=== PATIENT | female | born 1955 | race Caucasian/White ===

== ENCOUNTER 2020-12-15 09:48 | Emergency (ER) | payer MEDICARE, SELFPAY ==
--- NOTE | ~2020-12-15 | XR_ITS ---
EXAMINATION: LEFT HAND AND LEFT WRIST. CLINICAL INFORMATION: Hand and wrist pain. Swelling. COMPARISON: None TECHNIQUE: 3 views left hand/wrist and one view AP left wrist. FINDINGS: Left hand and left wrist: There is a small old avulsion fracture of the base of proximal segment proximal phalanx first digit/PIP joint. There is a nondisplaced fracture base of fifth metacarpal with minimal hypertrophic bony changes/callus formation with mild soft tissue swelling. There is loss of first carpometacarpal joint space with periarticular spurring likely DJD. No additional bony abnormality seen. Rest the soft tissues are unremarkable. XR/XR wrist LT 2V IMPRESSION: Nondisplaced fracture base of fifth metacarpal with hypertrophic bony changes. There is mild soft tissue swelling. There is old avulsion fracture proximal end proximal phalanx fifth digit at the PIP joint. Osteoarthritic changes first carpometacarpal joint.
--- NOTE | ~2020-12-15 | XR_ITS ---
EXAMINATION: LEFT HAND AND LEFT WRIST. CLINICAL INFORMATION: Hand and wrist pain. Swelling. COMPARISON: None TECHNIQUE: 3 views left hand/wrist and one view AP left wrist. FINDINGS: Left hand and left wrist: There is a small old avulsion fracture of the base of proximal segment proximal phalanx first digit/PIP joint. There is a nondisplaced fracture base of fifth metacarpal with minimal hypertrophic bony changes/callus formation with mild soft tissue swelling. There is loss of first carpometacarpal joint space with periarticular spurring likely DJD. No additional bony abnormality seen. Rest the soft tissues are unremarkable. XR/XR hand LT min 3V IMPRESSION: Nondisplaced fracture base of fifth metacarpal with hypertrophic bony changes. There is mild soft tissue swelling. There is old avulsion fracture proximal end proximal phalanx fifth digit at the PIP joint. Osteoarthritic changes first carpometacarpal joint.
[2020-12-15 09:51] VITALS: BP 119/73; PULSE 81; RESP 17; TEMP 35.9; O2SAT 98; BMI 27.4
--- NOTE | 2020-12-15 10:26 | ED_ITS ---
HPI - Extremity Problem General Chief complaint: Extremity Injury, Upper <KARINA Juarez - Last Filed: 12/29/20 15:28> Stated complaint: wrist inj <KARINA Juarez - Last Filed: 12/29/20 15:28> Time Seen by Provider: 12/15/20 10:26 <KARINA Juarez - Last Filed: 12/29/20 15:28> History of Present Illness HPI Narrative: Attending Dr. Cazares Patient complains of left hand pain for 4 weeks after injuring it in a fall on wet rocks, no numbness weakness or tingling no other injury <KARINA Juarez Last Filed: 12/29/20 15:28> Related Data Allergies/Adverse reactions: Allergies Allergy/AdvReac Type Severity Reaction Status Date / Time BANDAIDS Allergy Unknown UNKNOWN Uncoded 03/27/20 15:54 <KARINA Juarez - Last Filed: 12/29/20 15:28> Review of Systems Review of Systems: Positive for left hand pain Negatives are no fever no chills no dizziness or weakness no fainting no feeling faint no numbness weakness or tingling no redness no discharge no other joint pains no skin rash <KARINA Juarez - Last Filed: 12/29/20 15:28> Yes all other systems are reviewed and are negative <KARIAN Juarez - Last Filed: 12/29/20 15:28> [facility] Past Medical History Source: nursing notes reviewed <KARINA Juarez - Last Filed: 12/29/20 15:28> Social History Social History: Social History Advance Directives: No Advance Directives Information Provided: No <KARINA Juarez Last Filed: 12/29/20 15:28> Physical Exam Vital Signs: Vital Signs: Last Vital Signs Temp 96.7 F L 12/15/20 09:51 Pulse 81 12/15/20 09:51 Resp 12/15/20 09:51 BP 119/73 12/15/20 09:51 Pulse Ox 98 12/15/20 09:51 Body Mass Index 27.4 <KARINA Juarez Last Filed: 12/29/20 15:28> Vital Signs: Last Vital Signs Temp 96.7 F L 12/15/20 09:51 Pulse 81 12/15/20 09:51 Resp 17 12/15/20 09:51 BP 119/73 12/15/20 09:51 Pulse Ox 98 12/15/20 09:51 Body Mass Index 27.4 <Iain Roe MD - Last Filed: 01/31/21 09:00> General appearance no acute distress Head is normocephalic atraumatic Neck is supple Respiratory no distress Extremities the left hand shows some swelling and tenderness over the ulnar aspect of the dorsal hand, there is no evidence of any tendon deficit distal on either flexion or extension, neurovascular is intact, skin is intact no rash no wound, wrist has full range of motion with some discomfort Other extremities normal Skin no rash Neuro no gross motor or sensory deficit <KARINA Juarez - Last Filed: 12/29/20 15:28> Course Course Course Narrative: X-ray showed left 5th metacarpal fracture, which is several weeks old and patient is splinted and advised to follow with Orthopedics <KARINA Juarez - Last Filed: 12/29/20 15:28> I have reviewed the chart <Iain Roe MD - Last Filed: 01/31/21 09:00> Discharge Plan Discharge Clinical Impression: Fracture of hand <KARINA Juarez - Last Filed: 12/29/20 15:28> Patient Disposition: Home, Self-Care <KARINA Juarez - Last Filed: 12/29/20 15:28> Additional Instructions: X-ray showed a fracture of the 5th metacarpal with bony overgrowth representing a healing fracture Follow with hand specialist for further evaluation Return any concerns <KARINA Juarez - Last Filed: 12/29/20 15:28> Referrals: Krystina Kwong MD [Physician] - 2 days (Fifth metacarpal fracture 4-week-old, painful) <KARINA Juarez - Last Filed: 12/29/20 15:28> Interventions: ED Discharge Assessment Last Done: 12/15/20 11:07 <KARINA Juarez - Last Filed: 12/29/20 15:28> Discharge Date/Time: 12/15/20 11:08 <KARINA Juarez - Last Filed: 12/29/20 15:28>
== END 2020-12-15 11:08 | disposition home or self-care (01) ==
PROVIDERS: Emergency Provider Emergency Medicine; PCP Internal Medicine
DX: S62.317D Displaced fracture of base of fifth metacarpal bone, left hand, subsequent encounter for fracture with routine healing (principal); W18.30XD Fall on same level, unspecified, subsequent encounter
CPT/HCPCS: 73100; 73130; 99283

== ENCOUNTER 2023-06-20 09:55 | Emergency (ER) | payer MEDICARE, OTHER, SELFPAY ==
[2023-06-20 10:32] VITALS: BP 145/78; PULSE 72; RESP 18; TEMP 36.7; O2SAT 98; BMI 27.5
--- NOTE | 2023-06-20 11:51 | ED_ITS ---
HPI - Extremity Problem General Chief complaint: Extremity Injury, Upper Stated complaint: Infected finger Time Seen by Provider: 06/20/23 11:21 Source: patient Mode of arrival: ambulatory Limitations: no limitations History of Present Illness HPI Narrative: 68 yold female with pmh of HTN with left middle finger irritation and pain since cutting finger with bag made out of cheap at [employer] on [employer]. patient states since than finger has painful described as irratative. Also states skin was removed since incident. Patient states complete range of motion of finger and denies any numbness/tingling, bluish/black discloroation, fever, chills, or stiffness. Related Data Previous Rx's Medication Instructions Recorded bacitracin 500 unit/gram topical 1 appl topical TID 7 days #28 grams 06/20/23 ointment cephalexin 500 mg capsule 500 mg PO QID 7 days #28 caps 06/20/23 Allergies Allergy/AdvReac Type Severity Reaction Status Date / Time latex Allergy Rash Verified 06/20/23 10:35 nickel Allergy Rash Verified 06/20/23 10:36 BANDAIDS Allergy Unknown UNKNOWN Uncoded 03/27/20 15:54 Review of Systems 2 Review of Systems: left middle finger skin irrataiton Yes all other systems are reviewed and are negative [facility] Social History Social History Advance Directives: No Advance Directives Information Provided: Yes Physical Exam 2 Vital Signs: Vital Signs: Last Vital Signs Temp 98.0 F 06/20/23 10:32 Pulse 72 06/20/23 10:32 Resp 18 06/20/23 10:32 BP 145/78 H 06/20/23 10:32 Pulse Ox 98 06/20/23 10:32 O2 Del Method Room Air 06/20/23 10:32 BMI result Body Mass Index 27.5 Const: General: cooperative, healthy appearing, comfortable, no acute distress, well developed, alert and awake Orientation/consciousness: oriented to person, oriented to place, oriented to time and patient oriented x3 HEENT: Head: Yes normal to inspection, Yes No palpable skull fracture present, Yes normocephalic, Yes atraumatic and No abrasion Eyes: General: appearance normal, both eyes and all related structures Neck: Neck: Yes normal visual inspection, Yes full ROM, Yes no lymphadenopathy, Yes no meningeal signs, Yes trachea midline, Yes supple, No anterior neck swelling and No tender Chest: Chest palpation & inspection: normal inspection of the chest and normal palpation of entire chest wall Resp: Effort & Inspection: normal respiratory effort and able to speak in complete sentences Cardio: Jugular venous distension: no JVD Heart sounds: S1 normal heart sound present and S2 normal heart sound present GI: Inspection: Yes normal to inspection and No abdominal wall ecchymosis P alpation (GI): Soft to palpation, not firm, nontender, no guarding and not rigid : General: No CVA tenderness Back/Spine/Pelvis: Back: No CVA tenderness and No back tenderness Skin: Trauma: abrasion Neuro: General: oriented to person, oriented to place, oriented to time, patient oriented x3, gait normal, tone normal, moves all extremities, Normal light touch and pain sensation, no meningeal signs, no focal motor deficits, CN's II-XI intact bilaterally and normal sensation to monofilament Extrem: Other: negative for stiffness. Capillary refills intact. Motor/neuro/vascualar exam of finger and rest of hand normal. Negative for pus dainage. Superficial first layer of skin missing since day of incident of barbaravin. Psych: Appearance: grossly normal, well kempt and not disheveled Medical Decision Making Medical Decision Making MDM Narrative: 5-year-old female history of hypertension presents to ED for left middle finger skin irritation with superficial layer of skin need cuticles were removed by cut caused by wooden bag on day of dex given while shopping. Patient up-to-date with tetanus. Patient has complete range of motion of finger. Not suspect a tenosynovitis. Negative for signs of abscess of paronychia. Superficial abrasion versus very mild superficial skin avulsion. No surgical indication. No incision drainage needed. No laceration repair needed. Patient will be prescribed bacitracin and oral Keflex to prevent any infection. no need for any x-rays Differential Diagnosis Differential Diagnoses: The differential diagnosis associated with the presentation includes ( Skin avulsion, paronychia, skin abrasion, cellulitis) External Record Review External record reviewed: Other ( prior) Prescription Management I considered prescription management with: Antibiotic Discharge Plan Discharge Clinical Impression: Abrasion of finger Patient Disposition: Home, Self-Care Instructions: Abrasion (ED) Additional Instructions: return to the ED for any redness, swelling, bluish black discoloration, stiffness, fever, chills, tingling,numbness, or any other concerning symptoms. please follow-up with primary care provider. He will be discharged with oral antibiotics to prevent any cellulitis/abscess. You will is also given bacitracin. Prescriptions: New cephalexin 500 mg capsule 500 mg PO QID 7 Days Qty: 28 0RF bacitracin 500 unit/gram ointment 1 appl topical TID 7 Days Qty: 28 0RF Referrals: [facility] [place] Wound Care Management [Provider Group] (LEft finger abrasions/wound for almost two weeks) Interventions: ED Discharge Assessment Last Done: 06/20/23 12:34 Discharge Date/Time: 06/20/23 12:48 Print Language: Japanese
== END 2023-06-20 12:48 | disposition home or self-care (01) ==
PROVIDERS: Emergency Provider Emergency Medicine; PCP Internal Medicine
DX: S60.413A Abrasion of left middle finger, initial encounter (principal); W45.8XXA Other foreign body or object entering through skin, initial encounter; Y93.89 Activity, other specified; Y92.9 Unspecified place or not applicable; Y99.9 Unspecified external cause status
CPT/HCPCS: 99283

== ENCOUNTER 2023-06-26 09:07 | Emergency (ER) | payer MEDICARE, OTHER, SELFPAY ==
[2023-06-26 09:22] VITALS: BP 146/76; PULSE 89; RESP 18; TEMP 36.6; O2SAT 99; BMI 28.2
--- NOTE | 2023-06-26 11:22 | ED.ALLEREA ---
HPI - Allergic Reaction General Chief complaint: Allergic Reaction Stated complaint: Allergic reaction? Facial swelling Time Seen by Provider: 06/26/23 11:15 Source: patient and old records reviewed Mode of arrival: ambulatory Limitations: no limitations History of Present Illness HPI narrative: 68 year old female with pmhx significant for hypertension presents to the ED today for evaluation of swelling to the left side of her face and diffuse body itching x2 days. Reports noticing swelling to her upper lip and left face yesterday. She endorses itching all over her body. She has not noticed any rashes. She denies fever, chills, difficulty breathing, difficulty swallowing, chest pain or shortness of breath, nausea or vomiting, abdominal pain. Denies recent take her insect bites. Denies recent travel. Denies change in detergent, lotion, soap. She has been taking Benadryl at home without relief with the last dose being at 7:00 a.m. this morning. Denies being on an GORDY/ARB. Currently takes amlodipine for high blood pressure. States that she was here 1 week ago for suspected cellulitis on her left middle finger. She was discharged with Keflex, has been taking this for the last week without issue. She in unsure if this is related. She has 2 days of antibiotics left. Related Data Previous Rx's Medication Instructions Recorded bacitracin 500 unit/gram topical 1 appl topical TID 7 days #28 grams 06/20/23 ointment cephalexin 500 mg capsule 500 mg PO QID 7 days #28 caps 06/20/23 doxycycline hyclate 100 mg capsule 100 mg PO BID 7 days #14 caps 06/26/23 hydroxyzine HCl 25 mg tablet 25 mg PO ONCE PRN itching #14 tabs 06/26/23 Allergies Allergy/AdvReac Type Severity Reaction Status Date / Time latex Allergy Rash Verified 06/26/23 09:22 nickel Allergy Rash Verified 06/26/23 09:22 BANDAIDS Allergy Unknown UNKNOWN Uncoded 03/27/20 15:54 Review of Systems Review of Systems: Constitutional: No fever, chills, fatigue, night sweats, weight changes ENT/Mouth: No ear pain, hearing loss, nasal congestion, sinus pain, rhinorrhea, sore throat, +lip swelling, +left facial swelling Eyes: No eye pain, swelling, redness, vision changes, discharge Cardio: No chest pain, palpitations, SALTER, orthopnea, peripheral edema Pulm: No SOB, cough, sputum, wheezing, dyspnea, hemoptysis GI: No nausea, vomiting, hematemesis, abdominal pain, diarrhea, constipation, hematochezia, melena : No irregular bleeding, dysuria, frequency, urgency, hesitancy, hematuria, flank pain, urinary flow changes, urinary incontinence or retention MSK: No back pain, neck pain, joint pain, myalgias Skin: No lesions, rashes Neuro: No weakness, numbness, paresthesias, LOC, dizziness, headache All other systems reviewed and are negative. [facility], [facility] Past Medical History Attestation statement: The following information was validated with the patient. Source: old records reviewed and nursing notes reviewed Social History Social History Smoked in Last 30 Days: No Substance Use Type: Marijuana Substance Use Frequency: Daily Advance Directives: No Physical Exam ED Vital Signs: Vital Signs - 24 hr 06/26/23 09:22 06/26/23 11:41 06/26/23 13:26 Temperature 97.8 F Pulse Rate 89 68 72 Respiratory Rate 18 18 18 Blood Pressure 146/76 H 161/80 H 158/80 H Pulse Oximetry 99 99 98 Oxygen Delivery Method Room Air Room Air Room Air BMI result Body Mass Index 28.2 Vital signs stable Const General: cooperative, healthy appearing, comfortable, no acute distress, alert and awake Orientation/consciousness: patient oriented x3 Limitations: no limitations HENMT Other: + refer to photos below + edema noted to the left side of the face extending from the upper lip to the left inferior periorbital region and left mandible. Lower lip WNL. Tongue. + good dentition + No edema to buccal mucosa + Posterior oropharynx without erythema/edema. Uvula midline. Controlling secretions and speaking in complete sentences + No submandublar or submental LAD + No cervical LAD Ears: hearing grossly normal bilaterally, external ears normal, TM's normal bilaterally, EAC's normal, mastoids normal and no periauricular adenopathy General nose exam: Normal external nose present Face and sinus: Yes sinuses nontender Throat: Yes posterior oropharynx normal Eyes Other: + EOMs intact bilaterally without entrapment or pain. Visual chavarria by confrontation intact. General: appearance normal, both eyes and all related structures Conjunctivae: conjunctivae normal Sclerae: sclerae normal Pupils: Equal, round and reactive pupils present Neck Neck: Yes normal visual inspection, Yes full ROM and Yes no lymphadenopathy Resp Effort & Inspection: normal respiratory effort, able to speak in complete sentences, no respiratory distress, no tripod positioning and no use of accessory muscles Auscultation: clear to auscultation bilaterally and no wheezes Cardio Rate: regular rate Rhythm: regular rhythm Peripheral pulses: radial pulses present GI Inspection: Yes normal to inspection Palpation (GI): Soft to palpation and nontender Skin Other: + 1cm x 1cm area of cellulitis noted to the skin at the base of the left 3rd digit. no involvment of the nail or nail bed. no palpable warmth or fluctuance. no weeping. Neuro General: patient oriented x3, gait normal and moves all extremities Cranial nerves: Yes Equal, round and reactive pupils present Extrem General: Yes normal to inspection and Yes full ROM Course Course Course Narrative: 1314-- on re-evaluation patient states she feels much better. She is no longer itchy. She states her lip feels less swollen. On my examination, swelling has improved significantly. Airway is still patent. Patient talking in complete sentences and controlling secretions. Likely not a medication reaction. >> I feel comfortable discharging patient home as we have been observing her for approximately 2 hours now with improvement of symptoms. will send hydroxyzine to patient's pharmacy to take for allergic reaction. Advised her to not take this with Benadryl. >> will also send doxycycline to patient's pharmacy. As she was here 1 week ago for a finger infection, slight improvement on Keflex, will add 2nd therapy to this regimen. Informed patient of this plan. She is in agreement. >> Patient has remained stable throughout ED visit today. Discussed strict return precautions. All questions answered at this time. Patient is agreeable with disposition and stable for discharge. Medications Administered Discontinued Medications Generic Name Dose Route Start Last Admin Trade Name Yfnq PRN Reason Stop Dose Admin Diphenhydramine HCl 25 mg 06/26/23 11:22 06/26/23 11:33 Diphenhydramine Hcl 25 Mg Capsule PO 06/26/23 11:23 25 mg ONCE ONE Administration Famotidine 20 mg 06/26/23 11:22 06/26/23 11:34 Famotidine 20 Mg Tablet PO 06/26/23 11:23 20 mg ONCE ONE Administration Hydroxyzine HCl 25 mg 06/26/23 12:26 06/26/23 12:39 Hydroxyzine Hcl 25 Mg Tablet PO 06/26/23 12:27 25 mg ONCE ONE Administration Methylprednisolone Sodium Succinate 60 mg 06/26/23 11:22 06/26/23 11:34 Methylprednisolone Sod Succ 125 Mg/2 Ml Vial IM 06/26/23 11:23 60 mg ONCE ONE Administration Medical Decision Making Medical Decision Making MDM Narrative: 68 year old female with pmhx significant for hypertension presents to the ED today for evaluation of swelling to the left side of her face and diffuse body itching x2 days. Vital signs stable. On physical exam, edema noted to the left side of the face extending from the upper lip to the left inferior periorbital region and left mandible. Lower lip WNL. Tongue. good dentition. No edema to buccal mucosa. Posterior oropharynx without erythema/edema. Uvula midline. Controlling secretions and speaking in complete sentences. No submandublar or submental LAD. No cervical LAD. Lungs are CTA b/l bilaterally. No signs of respiratory distress. Airway patent. Patient is generally well-appearing. Clinical concern for allergic reaction, angioedema, contact dermatitis, medication reaction. Unlikely airway compromise, cellulitis, erysipelas, facial trauma, facial abscess, dental abscess. Plan for medication and re-evaluation. Differential Diagnosis Differential Diagnoses: The differential diagnosis associated with the presentation includes as above. Admission/Observation not indicated. External Record Review External record reviewed: Inpatient record, Office record, Outpatient record, Prior outpatient labs, Prior outpatient radiology, Primary care record and Outside ED record Prescription Management I considered prescription management with: Antibiotic and Other (Antihistamine) Chronic Conditions Patient?s care impacted by: Hypertension Critical Care Time Critical Care Time Critical Care Time: No Discharge Plan Discharge Clinical Impression: Allergic reaction, Skin infection Patient Disposition: Home, Self-Care Instructions: Allergy Testing (ED) Additional Instructions: You likely had an allergic reaction today. Hydroxyzine has been sent to your pharmacy. Take this as needed for itching or swelling. Do not take hydroxyzine with Benadryl. These are both antihistamines. You have been provided with a referral to an vision specialist. Make an appointment with them as he may need allergy testing. Call them to make the appointment. They will not call you. Continue taking Keflex to completion. Doxycycline is an antibiotic that has been sent to your pharmacy. Take this twice daily for the next 7 days in addition to Keflex. Do not finish antibiotics early or miss any doses this may cause infection to worsen or return. Please follow-up with your primary care provider. If symptoms persist or worsen despite treatment please return to the emergency department. The case of an emergency call 911. On doxycycline, do not take pills immediately before going to bed and swallow pills with plenty of water. Avoid direct sunlight, iron, and asses and Pepto-Bismol. Call your provider if you develop new brain your ears, new problems hearing, dizziness, difficulty swallowing, rash, abdominal discomfort, nausea or diarrhea. On a cephalosporin antibiotic softer bowel movements are to be expected. Call your provider if you move your bowels more than 4 times a day, your bowel movements are almost all liquid or if he has a rash. Prescriptions: New doxycycline hyclate 100 mg capsule 100 mg PO BID 7 Days Qty: 14 0RF hydroxyzine HCl 25 mg tablet 25 mg PO ONCE PRN (Reason: itching) Qty: 14 0RF No Action cephalexin 500 mg capsule 500 mg PO QID 7 Days Qty: 28 0RF bacitracin 500 unit/gram ointment 1 appl topical TID 7 Days Qty: 28 0RF Referrals: Denzel Garcia MD [Physician] - Interventions: ED Discharge Assessment Last Done: 06/26/23 13:29 Discharge Date/Time: 06/26/23 13:29
[2023-06-26] MEDS: diphenhydrAMINE HCL 25 MG CAPSULE PO (11:33)
[2023-06-26] MEDS: Famotidine 20 MG TABLET PO (11:34)
[2023-06-26] MEDS: methylPREDNISolone Sod Succ 125 MG/2 ML VIAL 60 MG IM (11:34)
[2023-06-26 11:41] VITALS: BP 161/80; PULSE 68; RESP 18; O2SAT 99
--- NOTE | 2023-06-26 12:08 | PC.NURSE ---
pt medicated per MAR, solumedrol given left deltoid, pt reports some initial anxiety, lightheadedness, heart racing after inj, vss, symptoms resolved after 15min.
[2023-06-26] MEDS: hydrOXYzine HCL 25 MG TABLET PO (12:39)
[2023-06-26 13:26] VITALS: BP 158/80; PULSE 72; RESP 18; O2SAT 98
--- NOTE | 2023-06-26 13:29 | PC.NURSE ---
pt reports improvement in itching sensation and facial swelling.
== END 2023-06-26 13:29 | disposition home or self-care (01) ==
PROVIDERS: Emergency Provider Emergency Medicine; PCP Internal Medicine
DX: L08.9 Local infection of the skin and subcutaneous tissue, unspecified (principal); T78.49XA Other allergy, initial encounter; L23.9 Allergic contact dermatitis, unspecified cause; X58.XXXA Exposure to other specified factors, initial encounter; I10 Essential (primary) hypertension; L29.9 Pruritus, unspecified; R22.0 Localized swelling, mass and lump, head
CPT/HCPCS: 96372; 99284; J2930